=== PATIENT | female | born 1955 | race Caucasian/White ===

== ENCOUNTER 2017-12-23 20:01 | Inpatient (IN) | payer OTHER ==
[~2017-12-23] VITALS: Ht 165.1 cm; Wt 70.3 kg
[2017-12-24] MEDS ORDERED: PRED5DRO16 EACHEYE (18:04)
[2017-12-24] MEDS ORDERED: PROP15DR EACHEYE (18:04)
[2017-12-24] MEDS ORDERED: ONDA4TAB8 SL (18:04)
--- NOTE | 2017-12-24 18:10 | NUR ---
PRE ADMISSION NOTE Received patient in intake alert awake oriented x4. 62 year old female admitted for ETOH(WHITE WINE) withdrawal. Patient presented with anxiety, restless, agitated, flat facial expression. Patient is ambulatory with steady gait. Patient reported PMH of HTN, anxiety, diverticulum and Past surgery history removal of the cysts, cataract, tonsillectomy. Patient denies any history of seizure. Patient denies any recent hospitalization. Patent never smoke cigarettes. Patient brought medications from home. Vital signs-B/P 133/100, HR-111, RR-18, TEMP-98.5, SPo2-96%Pain-0/10. Educated patient regarding polices and procedures. Patient verbalized understanding. Will admit the patient on the 3rd floor. Will cont to follow up.
--- NOTE | 2017-12-24 18:19 | NUR ---
SKIN ASSESSMENT Upon arrival to 3rd floor. Skin assessment done and noted with right lateral thigh ecchymosis skin intact to the site no swelling no bleeding no skin breakdown noted. No picture needed. Patient reported "she has Vitamin-K deficiency and bruise easily. No contraband found. Height-5'5, weight- 141. Will cont to follow up.
[2017-12-24] MEDS ORDERED: THIAMINE HCL 200 MG/2 ML VIAL IM ONE (18:30)
[2017-12-24] MEDS ORDERED: IBUPROFEN 400 MG TABLET PO PRN (18:30)
[2017-12-24] MEDS ORDERED: ONDANSETRON ODT 4 MG TAB.RAPDIS SL PRN (18:30)
[2017-12-24] MEDS ORDERED: MIRALAX 17 GM POWD.PACK PO PRN (18:30)
[2017-12-24] MEDS ORDERED: LORAZEPAM 2 MG/1 ML VIAL IM PRN (18:30)
[2017-12-24] MEDS ORDERED: ACETAMINOPHEN 325 MG TABLET PO PRN (18:30)
[2017-12-24] MEDS ORDERED: LOPERAMIDE HCL 2 MG CAPSULE PO PRN ×2 (18:30)
[2017-12-24] MEDS ORDERED: MAGNESIUM HYDROXIDE 30 ML LIQUID UDC PO PRN (18:30)
[2017-12-24] MEDS ORDERED: DICYCLOMINE HCL 20 MG TABLET PO PRN (18:30)
[2017-12-24] MEDS ORDERED: diphenhydrAMINE 50 MG CAPSULE PO PRN (18:30)
[2017-12-24] MEDS ORDERED: MAG HYDROX/AL HYDROX/SIMETH 30 ML LIQUID UDC PO PRN (18:30)
[2017-12-24] MEDS ORDERED: CLONIDINE HCL 0.1 MG TABLET PO PRN (18:30)
[2017-12-24] MEDS ORDERED: LORAZEPAM 1 MG TABLET PO PRN ×2 (18:30)
[2017-12-24] MEDS ORDERED: ONDANSETRON 4 MG/2 ML VIAL IM PRN (18:30)
[2017-12-24 18:54] LABS: *URINE HCG, QUAL NEGATIVE (NEGATIVE)
[2017-12-24 19:04] LABS: *AMPHETAMINE, URINE NEGATIVE (NEGATIVE); *BARBITURATE, URINE NEGATIVE (NEGATIVE); *CANNABINOID, URINE POSITIVE (NEGATIVE); *COCCAINE, URINE NEGATIVE (NEGATIVE); *OPIATE, URINE POSITIVE (NEGATIVE); *PHENCYCLIDINE SCREEN,URINE NEGATIVE (NEGATIVE)
--- NOTE | 2017-12-24 19:30 | NUR ---
Admission Note Rula is 62 y/o female who is being admitted for medically supervised withdrawal from ETOH. Px is not intoxicated and experiencing withdrawal right now. Px looks clean, with good eye contact but appears anxious and depressed. Speech is clear and audible. Px is A&Ox4. Px states that withdrawal from ETOH has typically includes high anxiety, insomnia and being jittery. Px denies a hx of withdrawal-induced seizures. Px states she is DNR. No document was submitted. Dr. Gregg aware. Rula states she drinks 750 ml of wine everyday, 5 days a week for 20 years. Last intake was 12/22/2017 of 750 ml. Px states that she is seeking tx today because the tx center in [place] asked her to go for detox. Rula is first time in detox/treatment. Px verbalized "I am very motivated and I don't have to drink anymore, I know that." Rula was sober for 6 months last 2 years ago. She relapsed due to the feeling of high anxiety, and depression. She tried not to drink anymore but when she drank, her anxiety decreased. Px always felt relieved from anxiety every time she drinks. Rula plans to go to a rehabilitation center in [place] after this detox. VS are as follows BP= 152/94, VT= 108, RR= 16, T=97.6, O2sat= 98% on RA. Pulse is regular but tachycardic. Respirations are even and unlabored. Lung sounds are clear. Bowel sounds are active in all quadrants. Skin is intact. Rula follows healthy regular diet at home. Rula has allergies to Tylenol, Motrin and scallops. Rula stands 5'5" and weighs 155 lbs. Px denies smoking cigarette. Px's primary care doctor is Dr. Frost. 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 Rula was educated about the plan of care including detox, group therapy, individual therapy, and D/C planning. Px was encouraged to be open and honest for successful detox and recovery. Addendum: 12/25/17 at 0422 by SPENCER GAMEZ RN Px is positive in opiate due to the px took opiate pain reliever from her dentist. Px is positive in benzo due to the px is taking prescribed Xanax 5 mg PO PRN for anxiety.
[2017-12-24 19:44] LABS: BASOPHILS % (AUTO) 0.7 % (0.0-2.0); EOSINOPHILS % (AUTO) 0.4 % (0.0-7.0); HEMATOCRIT 40.5 % (31.2-41.9); LYMPHOCYTES # (AUTO) 1.9 K/uL (20.0-40.0); LYMPHOCYTES % (AUTO) 28.2 % (20.5-51.5); MEAN CORPUSCULAR HEMOGLOBIN 31.7 uug (24.7-32.8); MEAN CORPUSCULAR HGB CONC 35 g/dL (32.3-35.6); MEAN CORPUSCULAR VOLUME 91.8 fL (75.5-95.3); MONOCYTES # (AUTO) 0.7 K/uL (2.0-10.0); MONOCYTES % (AUTO) 10.4 % (0.0-11.0); NEUTROPHILS % (AUTO) 60.3 % (38.5-71.5); PLATELET COUNT (AUTO) 129 K/uL (179-408); RED BLOOD CELL COUNT(AUTO) 4.41 MIL/uL (3.63-4.92); WHITE BLOOD COUNT (AUTO) 6.7 K/uL (3.8-11.8)
[2017-12-24 19:53] LABS: ETHANOL < 3 MG/DL (0-0)
[2017-12-24 19:59] LABS: ALANINE AMINOTRANSFERASE 36 U/L (14-59); ALKALINE PHOSPHATASE 82 U/L (50-136); ASPARTATE AMINOTRANSFERASE 30 U/L (15-37); BILIRUBIN,TOTAL 1.6 mg/dL (0.2-1.0); CARBON DIOXIDE 30 mmol/L (21-32); CHLORIDE 98 mmol/L (98-107); CREATININE 0.8 mg/dL (0.6-1.3); GLUCOSE 123 mg/dL (74-106); MAGNESIUM 1.6 mg/dL (1.8-2.4); POTASSIUM 3.7 mmol/L (3.5-5.1); TOTAL PROTEIN, SERUM 7.9 g/dL (6.4-8.2); UREA NITROGEN, BLOOD 8 mg/dL (7-18)
[2017-12-24 20:00] VITALS: BP 152/94
[2017-12-24 20:01] LABS: THYROID STIMULATING HORMONE 3.858 mIU/mL (0.358-3.740)
[2017-12-24] MEDS ORDERED: [UNRECOGNIZED DRUG - CODE] MC (21:33)
[2017-12-24] MEDS ORDERED: LOPE1TAB46 PO (21:33)
[2017-12-24] MEDS ORDERED: [UNRECOGNIZED DRUG - OTHER] (21:33)
[2017-12-24] MEDS ORDERED: S AD PO (21:33)
[2017-12-24] MEDS ORDERED: [UNRECOGNIZED DRUG - OTHER] (21:33)
[2017-12-24] MEDS ORDERED: PROG100C15 PO (21:33)
[2017-12-24] MEDS ORDERED: AMLO5TAB2 PO (21:33)
[2017-12-24] MEDS ORDERED: [UNRECOGNIZED DRUG - REMARK] (21:33)
[2017-12-24] MEDS ORDERED: PATIENT MAY USE OWN MED- MD OK EACHEYE PRN (21:45)
--- NOTE | 2017-12-24 21:59 | NUR ---
PRN Ativan Px received Ativan 1 mg/tab, 2 tabs PO as PRN med for CIWA of 13. We'll continue to monitor.
[2017-12-25] VITALS: BP 131/85
[2017-12-25] MEDS: LIDOCAINE VISCUS 2% 15 ML UDC MM PRN ×2 (00:25→08:37)
--- NOTE | 2017-12-25 00:25 | NUR ---
PRN Xylocaine Viscus Xylocaine Viscus 5 ml given as PRN med for toothache of 01/16. We'll continue to monitor.
--- NOTE | 2017-12-25 01:25 | NUR ---
Reassessment of toothache Reassessment was deferred due to the px is asleep. We'll continue to monitor.
[2017-12-25 04:00] VITALS: BP 129/80
--- NOTE | 2017-12-25 07:10 | NUR ---
End of Shift Note During the shift at 2159, px received Ativan 2 mg PO as PRN med for CIWA 13. At 0025, px received Xylocaine viscus 5 ml for toothache of 01/16. Pxs oral intake is 2 L, voided 3x, without BM. Px slept for 7 hours. At 0630, px is awake inside her room. Px states "I want to leave today. I feel like I am a prisoner here. The medications that I need to take were not given to me. I need to work last night and the [employer] was not working. I already lost $1000 by not doing my job last night. I want to go the rehabilitation center in [place]. I can work there while they're treating me." Reconciled medications protocol explained and px was redirected. Px was advised to talk and wait for the doctor. Last CIWA 16. Px refused to take medications. Bed on lowest position, side rails up 2x and call light within reach. We'll continue to monitor. Px endorsed to AM shift nurse.
--- NOTE | 2017-12-25 07:30 | NUR ---
START OF SHIFT Received report from power and recovery shift engineer nurse. Pt is in her room watching TV. She is a 62 yo female admitted to [facility] on 12/24 for ETOH withdrawal. PRN Ativan is ordered for the management of withdrawal symptoms. She is observed with tremors. Her affect is flat and she has racing thoughts. She is moderately anxious and appears restless. Pt is verbalizing wanting to leave AMA due to the fact that she is unable to perform her job duties while here. Pt was provided with her lap top last night for a period of time to work. Pt also states that she is unable to eat any of the food offered here because she only eats food that she grows at home or pressed kale juice due to GI problems. Several options offered to pt regarding diet and she continues to refuse. Pt is drinking plenty of water. Mg level 1.6 with orders for replacement this morning. Support and encouragement provided. Safety measures in place.
[2017-12-25 08:00] VITALS: BP 179/100
--- NOTE | 2017-12-25 08:30 | NUR ---
PRN Clonidine Pt's B/P is 172/100 and HR 98. PRN Clonidine administered.
--- NOTE | 2017-12-25 08:40 | NUR ---
PRN Lidocaine viscus Pt reports tooth ache. PRN Lidocaine viscus administered.
[2017-12-25] MEDS ORDERED: TUBERCULIN,PURIF.PROT.DERIV. 5 TU/0.1 ML TEST ID ONE (09:00)
[2017-12-25] MEDS ORDERED: AMLODIPINE 5 MG PO SCH (09:00)
[2017-12-25] MEDS ORDERED: FOLIC ACID 1 MG TABLET PO SCH (09:00)
[2017-12-25] MEDS ORDERED: MULTIVITAMINS,THERAPEUTIC TABLET PO SCH (09:00)
[2017-12-25] MEDS ORDERED: [UNRECOGNIZED DRUG - OTHER] PO SCH (09:00)
[2017-12-25] MEDS ORDERED: THIAMINE HCL 100 MG TABLET PO SCH (09:00)
[2017-12-25] MEDS ORDERED: MAGNESIUM OXIDE 400 MG TABLET PO ONE (09:00)
--- NOTE | 2017-12-25 09:10 | NUR ---
PRN Lidocaine viscus reassessment PRN Lidocaine effective. Pt reports tooth pain is relieved.
[2017-12-25 09:30] VITALS: BP 137/92
--- NOTE | 2017-12-25 09:30 | NUR ---
PRN Clonidine reassessment PRN Clonidine effective. Pt's B/P is 137/92 and HR 83.
[2017-12-25] MEDS ORDERED: HYDROXYZINE PAMOATE 25 MG CAPSULE PO PRN (10:00)
[2017-12-25] MEDS ORDERED: S ADENOSYLMETHIONINE PO SCH (10:30)
[2017-12-25] MEDS ORDERED: SYSTANE EYE EACHEYE PRN (10:30)
[2017-12-25] MEDS ORDERED: [UNRECOGNIZED DRUG - OTHER] PO SCH ×2 (10:30→12:47)
[2017-12-25] MEDS ORDERED: [UNRECOGNIZED DRUG - OTHER] PO SCH (10:30)
[2017-12-25] MEDS ORDERED: hydrALAZINE HCL 50 MG TABLET PO PRN (10:30)
[2017-12-25] MEDS ORDERED: PROGESTERONE 100 MG PO SCH ×2 (10:30→12:47)
--- NOTE | 2017-12-25 12:26 | NUR ---
PRN Systane Pt reports dry and irritated eyes. PRN Systane eye drops administered.
[2017-12-25 12:30] VITALS: BP 139/92
--- NOTE | 2017-12-25 13:06 | NUR ---
PRN Systane reassessment PRN Systane effective. Pt reports that eye irritation is mostly relieved.
--- NOTE | 2017-12-25 15:37 | NUR ---
Discharge Pt is in stable condition. Vitals WNL. Pt A&O x4, skin is intact. Pt denies any SI/HI. All discharge paperwork completed, dated, and signed. Pt educated regarding discharge instructions and reportable s/s. Pt verbalized understanding. Pt's Last CIWA 7 taken at 1230. Pt was discharged from [facility] on 12/25/17 at 1530 with all of her belongings and medications. MD is aware of pt's discharge.
[2017-12-26 07:07] LABS: HEPATITIS B SURFACE AG Negative (Negative)
== END 2017-12-25 15:30 | disposition other institution (70) | DRG 897 ==
LOC: SRC 12-24 17:02
PROVIDERS: ADMIT Internal Medicine; ATTEND Internal Medicine
PROC: HZ2ZZZZ Detoxification Services for Substance Abuse Treatment (ICD-10-PCS; principal; 2017-12-24)
DX: F10.20 Alcohol dependence, uncomplicated (principal); F13.90 Sedative, hypnotic, or anxiolytic use, unspecified, uncomplicated; I10 Essential (primary) hypertension; G89.29 Other chronic pain; M54.5 Low back pain; F11.90 Opioid use, unspecified, uncomplicated; K57.90 Diverticulosis of intestine, part unspecified, without perforation or abscess without bleeding; K08.89 Other specified disorders of teeth and supporting structures; F41.0 Panic disorder [episodic paroxysmal anxiety]; H26.9 Unspecified cataract; F32.9 Major depressive disorder, single episode, unspecified
CPT/HCPCS: 36415; 70030-TC; 80307; 80346; 80349; 80361; 83735; 84443; 84703; 85025; 86592; 86705; 86803; 87340; 87806; A4663; G0480; J3411